=== PATIENT | male | born 1975 | race African-American/Black ===

== ENCOUNTER 2023-03-01 13:39 | Emergency (ER) | payer BC, OTHER ==
[~2023-03-01] VITALS: Ht 190.5 cm; Wt 77.1 kg
[2023-03-01 13:49] VITALS: BP_SYST 127
[2023-03-01 14:41] LABS: BASOPHILS % (AUTO) 0.7 % (0.0-2.0); EOSINOPHILS # (AUTO) 0.1 K/uL (0.0-0.4); EOSINOPHILS % (AUTO) 1.3 % (0.0-4.0); HEMOGLOBIN 11.6 g/dL (14.0-18.0); LYMPHOCYTES # (AUTO) 1.5 K/uL (1.0-5.5); MEAN CORPUSCULAR HEMOGLOBIN 26 pg (27-31); MEAN CORPUSCULAR HGB CONC 33 % (32-36); MEAN CORPUSCULAR VOLUME 80 fL (79.0-98.0); MONOCYTES # (AUTO) 0.7 K/uL (0.0-1.0); MONOCYTES % (AUTO) 9.8 % (1.7-9.3); NEUTROPHILS # (AUTO) 5.1 K/uL (1.8-7.7); NEUTROPHILS % (AUTO) 68.2 % (40.0-70.0); PLATELET COUNT (AUTO) 333 K/uL (130-430); RED CELL DISTRIBUTION WIDTH 15.7 % (9.0-15.0); WHITE BLOOD COUNT (AUTO) 7.5 K/uL (4.8-10.8)
[2023-03-01 14:56] LABS: ANION GAP 4 (5-15); CALCIUM 8.8 mg/dL (8.4-11.0); CHLORIDE 103 mmol/L (98-107); CREATININE 0.83 mg/dL (0.55-1.30); GFR AFRICAN AMERICAN 129 mL/min (>90); GLUCOSE 146 mg/dL (70-99); UREA NITROGEN, BLOOD 16 mg/dL (8-21)
[2023-03-01 15:03] LABS: ALANINE AMINOTRANSFERASE 44 U/L (12-78); ALBUMIN 3.4 g/dL (3.4-4.8); ALCOHOL, BLOOD 5 mg/dL (<10); ASPARTATE AMINOTRANSFERASE 27 U/L (10-37); TOTAL BILIRUBIN 0.6 mg/dL (0.0-1.0)
[2023-03-01 17:10] VITALS: BP_SYST 129
== END 2023-03-01 17:10 | disposition home or self-care (01) ==
LOC: SED 13:39
DX: R53.1 Weakness (principal); Z79.899 Other long term (current) drug therapy; Z20.822 Contact with and (suspected) exposure to COVID-19
CPT/HCPCS: 99285; 71045; 87426; 80053; 83880; 85025; 84484; 36415; 93005; G0482

== ENCOUNTER 2023-03-18 21:08 | Emergency (ER) | payer BC, OTHER ==
[~2023-03-18] VITALS: Ht 190.5 cm; Wt 99.8 kg
[2023-03-18 21:25] VITALS: BP_SYST 129
[2023-03-18 22:32] LABS: BASOPHILS % (AUTO) 0.5 % (0.0-2.0); EOSINOPHILS # (AUTO) 0.2 K/uL (0.0-0.4); EOSINOPHILS % (AUTO) 2.4 % (0.0-4.0); HEMATOCRIT 35.2 % (36-54); HEMOGLOBIN 11.4 g/dL (14.0-18.0); LYMPHOCYTES # (AUTO) 2.2 K/uL (1.0-5.5); LYMPHOCYTES % (AUTO) 27.2 % (20.5-51.5); MEAN CORPUSCULAR HEMOGLOBIN 26 pg (27-31); MEAN CORPUSCULAR HGB CONC 32 % (32-36); MEAN CORPUSCULAR VOLUME 81 fL (79.0-98.0); MONOCYTES # (AUTO) 0.6 K/uL (0.0-1.0); MONOCYTES % (AUTO) 7.7 % (1.7-9.3); NEUTROPHILS % (AUTO) 62.2 % (40.0-70.0); PLATELET COUNT (AUTO) 300 K/uL (130-430); RED BLOOD CELL COUNT(AUTO) 4.37 MIL/uL (4.2-6.2); RED CELL DISTRIBUTION WIDTH 16.1 % (9.0-15.0); WHITE BLOOD COUNT (AUTO) 8.1 K/uL (4.8-10.8)
[2023-03-18 22:40] LABS: ANION GAP 8 (5-15); CALCIUM 8.8 mg/dL (8.4-11.0); CHLORIDE 103 mmol/L (98-107); CREATININE 0.82 mg/dL (0.55-1.30); GFR AFRICAN AMERICAN 131 mL/min (>90); GLUCOSE 110 mg/dL (70-99); UREA NITROGEN, BLOOD 18 mg/dL (8-21)
[2023-03-18 22:47] LABS: ALANINE AMINOTRANSFERASE 32 U/L (12-78); ALBUMIN 3.4 g/dL (3.4-4.8); ASPARTATE AMINOTRANSFERASE 18 U/L (10-37); TOTAL BILIRUBIN 0.4 mg/dL (0.0-1.0)
[2023-03-19] MEDS ORDERED: NAPR-1172 PO (02:01)
[2023-03-19 02:20] VITALS: BP_SYST 142
== END 2023-03-19 02:27 | disposition home or self-care (01) ==
LOC: SED 21:08
DX: R07.9 Chest pain, unspecified (principal); J45.909 Unspecified asthma, uncomplicated; Z79.899 Other long term (current) drug therapy
CPT/HCPCS: 36415; 71045; 80053; 83880; 84484; 85025; 93005; 99285